=== PATIENT | female | born 1960 | race Two or more races ===

== ENCOUNTER → 2025-10-29 | Outpatient (CLI) | payer MEDICAID, SELFPAY ==
--- NOTE | 2025-10-29 12:20 | XR_ITS ---
Examination: Bone densitometry Date and time of exam: October 29, 2025, 1224 hours INDICATION: Menopause age 44, diabetic, postmenopausal ankle fracture vitamin D 1 year Technique: Lumbar spine and hip total bone mineralization values of an calculated. Peak reference and age match control results have been displayed. Findings: Lumbar spine total bone mineralization is 0.834 gm/cm2. This is 1.9 standard deviations below peak reference. This is 0.1 standard deviations below age-matched controls. Hip total bone mineralization is 0.824 gm/cm2 This is 1.0 standard deviations below peak reference. This is 0.2 standard deviations above age-matched controls Impression: There is osteopenia based on lumbar spine measurements. There is osteopenia based on hip measurements
== END | disposition home or self-care (01) ==
LOC: CDIM 11:40
PROVIDERS: PCP Physician Assistant; Referring Provider Physician Assistant; Visit Provider Physician Assistant
DX: M85.89 Other specified disorders of bone density and structure, multiple sites (principal)
CPT/HCPCS: 77080